=== PATIENT | male | born 1990 | race African-American/Black ===

== ENCOUNTER 2024-05-30 17:32 | Emergency (ER) | payer BC ==
[~2024-05-30] VITALS: Ht 180.3 cm; Wt 85.0 kg
[2024-05-30 17:39] VITALS: O2SAT 98
[2024-05-30 18:23] VITALS: BP 140/88; PULSE 80; RESP 18; TEMP 98.2
== END 2024-05-30 18:24 | disposition home or self-care (01) ==
LOC: ER 17:32
DX: F41.0 Panic disorder [episodic paroxysmal anxiety] (principal); F41.9 Anxiety disorder, unspecified
CPT/HCPCS: 99281